=== PATIENT | male | born 1940 | race Caucasian/White ===

== ENCOUNTER 2022-01-27 08:35 | Emergency (ER) | payer OTHER ==
[2022-01-27 08:48] VITALS: BP 159/78; PULSE 75; RESP 18; TEMP 98.4; BMI 29.7
[2022-01-27] MEDS ORDERED: morphine SULFATE 4 MG/ML VIAL IVPUSH ONE (10:17)
[2022-01-27] MEDS ORDERED: morphine SULFATE 4 MG/ML VIAL ONE (10:20)
[2022-01-27 11:05] LABS: BASO % 0.9 % (0-2.0); EOS % 4.5 % (0-4.5); HEMATOCRIT 37.6 % (35.4-49); HEMOGLOBIN 12.8 GM/dL (11.7-16.9); MCH 30.7 pg (25.7-33.7); MCHC 34.1 g/dl (32.0-35.9); MEAN CELL VOLUME 89.9 fl (80-96); MEAN PLT VOLUME 8.2 fl (7.5-11.1); MONO % 6.9 % (3.8-10.2); NEUT % 60.7 % (42.8-82.8); PLATELET COUNT 197 10^3/uL (134-434); RBC 4.18 M/mm3 (4.00-5.60); RDW 13.9 % (11.9-15.9); WHITE BLOOD COUNT 5.2 K/mm3 (4.0-10.0)
[2022-01-27 11:07] LABS: INR 1.14 (0.83-1.09); PROTHROMBIN TIME (PATIENT) 13.1 SEC (9.7-13.0)
[2022-01-27 11:24] LABS: ALBUMIN 3.7 g/dl (3.4-5.0); CALCIUM 8.6 mg/dL (8.5-10.1)
[2022-01-27 11:27] LABS: CREATININE 1.1 mg/dL (0.55-1.3)
[2022-01-27 11:29] LABS: BILIRUBIN,TOTAL 0.5 mg/dL (0.2-1); TOT PROT 7.3 g/dl (6.4-8.2)
[2022-01-27 11:33] LABS: N-TERMINAL BNP 139.7 pg/ml (5-450)
[2022-01-27 12:07] LABS: BLOOD UREA NITROGEN 33.1 mg/dL (7-18)
[2022-01-27 12:44] LABS: LACTIC ACID 2.3 mmol/L (0.4-2.0)
[2022-01-27] MEDS ORDERED: SODIUM CHLORIDE 0.9% 500 ML INFUS.BAG IV ONE (12:52)
== END 2022-01-27 16:31 | disposition home or self-care (01) ==
LOC: JER 08:35
PROC: 3E033GC Introduction of Other Therapeutic Substance into Peripheral Vein, Percutaneous Approach (ICD-10-PCS; principal; 2022-01-27)
DX: K40.91 Unilateral inguinal hernia, without obstruction or gangrene, recurrent (principal)
CPT/HCPCS: 0241U-QW; 36415; 71046-TC-FY; 74177-TC; 76856-TC; 80053; 83605; 83690; 83735; 83880; 84484; 85025; 85610; 85730; 86850; 86900; 86901; 93005; 93010; 99285-25

== ENCOUNTER 2023-07-09 20:40 | Emergency (ER) | payer BC, OTHER ==
[2023-07-09 20:49] VITALS: BMI 25.8
[2023-07-09] MEDS ORDERED: FAMOTIDINE 20 MG/50 ML IVPB 20 MG/50 ML MG IVPB ONE (22:04)
[2023-07-09] MEDS ORDERED: ACETAMINOPHEN INJECTION 100 ML IVPB ONE (22:04)
[2023-07-09] MEDS ORDERED: ONDANSETRON 4 MG/2 ML VIAL ONE (22:04)
[2023-07-09 22:11] LABS: BASO % 0.1 % (0-2.0); EOS % 0.3 % (0-4.5); HEMATOCRIT 33.2 % (35.4-49); HEMOGLOBIN 11.7 GM/dL (11.7-16.9); LYMPH % 10.1 % (8-40); MCH 31.7 pg (25.7-33.7); MCHC 35.1 g/dl (32.0-35.9); MEAN CELL VOLUME 90.3 fl (80-96); MONO % 8.1 % (3.8-10.2); NEUT % 81.4 % (42.8-82.8); PLATELET COUNT 128 10^3/uL (134-434); RBC 3.68 M/mm3 (4.00-5.60); RDW 14.8 % (11.9-15.9); WHITE BLOOD COUNT 8.3 K/mm3 (4.0-10.0)
[2023-07-09] MEDS: SODIUM CHLORIDE 0.9% 500 ML INFUS.BAG IV ONE (22:11)
[2023-07-09] MEDS: FAMOTIDINE 20 MG/50 ML IVPB 20 MG/50 ML MG IVPB ONE (22:12)
[2023-07-09] MEDS: ONDANSETRON 4 MG/2 ML VIAL IVPUSH ONE (22:12)
[2023-07-09] MEDS: ACETAMINOPHEN 1000 MG/100 ML BAG IVPB ONE (22:12)
[2023-07-09 22:17] LABS: INR 2.06 (0.83-1.09); PROTHROMBIN TIME (PATIENT) 22.8 SEC (9.7-13.0)
[2023-07-09 22:22] LABS: POTASSIUM 3.9 mmol/L (3.5-5.1)
[2023-07-09 22:24] LABS: CALCIUM 8.8 mg/dL (8.5-10.1)
[2023-07-09 22:25] LABS: ALBUMIN 3.2 g/dl (3.4-5.0)
[2023-07-09 22:29] LABS: BILIRUBIN,TOTAL 0.9 mg/dL (0.2-1)
[2023-07-09 22:30] LABS: TOT PROT 6.8 g/dl (6.4-8.2)
[2023-07-09 22:33] LABS: LACTIC ACID 2.9 mmol/L (0.4-2.0)
[2023-07-10 00:26] VITALS: BP 123/77; RESP 19; TEMP 98
[2023-07-10 01:18] LABS: URINE COLOR YELLOW
[2023-07-10 01:19] LABS: URINE APPEARANCE CLEAR; URINE BILIRUBIN NEGATIVE (NEGATIVE); URINE GLUCOSE (UA) NEGATIVE (NEGATIVE)
[2023-07-10 01:20] LABS: PH,URINE 5.5 (5.0-8.0); URINE KETONE >=80 mg/dl (NEGATIVE); URINE PROTEIN TRACE (NEGATIVE)
[2023-07-10 01:21] LABS: URINE LEUK ESTERASE 1+ (NEGATIVE); URINE NITRITE Positive (NEGATIVE); URINE RBC 74.9 /uL (0-23.9)
[2023-07-10 01:22] LABS: EPI CELLS 4.8 /uL (0-25.1); HYALINE CASTS 0.29 /uL (0-3.1); URINE BACTERIA 13494.5 /uL (0-1359); URINE WBC 1509.3 /uL (0-25.8)
[2023-07-10 01:23] LABS: YEAST NPNE (NEGATIVE)
[2023-07-10] MEDS ORDERED: CEFTRIAXONE 1 GM/50 ML BAG ONE (01:44)
[2023-07-10] MEDS: CEFTRIAXONE 1,000 MG in DEXTROSE 5%-WATER - 50 ML IVPB ONE (01:50)
[2023-07-10 02:34] VITALS: PULSE 96
== END 2023-07-10 02:35 | disposition home or self-care (01) ==
LOC: JER 20:40
PROC: 3E033GC Introduction of Other Therapeutic Substance into Peripheral Vein, Percutaneous Approach (ICD-10-PCS; principal; 2023-07-09)
PROC: 3E033NZ Introduction of Analgesics, Hypnotics, Sedatives into Peripheral Vein, Percutaneous Approach (ICD-10-PCS; 2023-07-09)
PROC: 3E033GC Introduction of Other Therapeutic Substance into Peripheral Vein, Percutaneous Approach (ICD-10-PCS; 2023-07-09)
PROC: 3E03329 Introduction of Other Anti-infective into Peripheral Vein, Percutaneous Approach (ICD-10-PCS; 2023-07-10)
DX: R10.30 Lower abdominal pain, unspecified (principal); R11.0 Nausea; N39.0 Urinary tract infection, site not specified; Z20.822 Contact with and (suspected) exposure to COVID-19
CPT/HCPCS: 0241U-QW; 36415; 74177-TC; 80053; 81003; 83605; 83690; 84484; 85025; 85610; 85730; 86850; 86900; 86901; 87086; 87186; 93005; 93010; 99285-25; J0131; Q9967